=== PATIENT | male | born 1955 | race Caucasian/White ===

== ENCOUNTER 2016-10-19 19:25 | Inpatient (IN) | payer MEDICARE, OTHER ==
[~2016-10-19] VITALS: Ht 188 cm; Wt 106.6 kg
[2016-10-19 20:00] VITALS: BP 153/93
--- NOTE | 2016-10-19 20:30 | NUR ---
ADMITTED A 61 Y/O MALE FROM [facility], VOLUNTARY, PATIENT ADMITTED HAVING DEPRESSION AND SUICIDAL IDEATION THIS MORNING. PATIENT STATED " BEING HOMELESS FOR 5 YEARS, THAT'S DEPRESSING. SEEING PEOPLE IN THE STREET'S, THAT'S DEPRESSING. HAVING AN INTENSE PAIN, THAT'S DEPRESSING". PATIENT ADMITTING DX. DEPRESSION. PATIENT MEDICAL DX. HYPERTENSION, NEUROPATHY, CHRONIC LUMBAR STENOSIS, GERD, HEP C, ADHD, ALCOHOLIC. PATIENT ALERT AND ORIENTED X 3-4, CALM, ANXIOUS, COOPERATIVE, HYPERVERBAL, VERBALIZED DEPRESSION, NO SOB, NO ACUTE DISTRESS NOTED, BREATHING EVEN AND UNLABORED, DENIES PAIN AND DISCOMFORT AT THE MOMENT, DENIES SI/HI/AH/VH AT THIS TIME, FULL CODE, NKA, PICTURE DONE, BELONGINGS AND CONTRABAND INSPECTED AND PLACED TO SAFE. PATIENT SIGNED ALL PAPER WORKS, PATIENT REFUSED TO DISCLOSED INFORMATIONS, KEPT CLEAN, DRY AND COMFORTABLE, WILL CONTINUE TO MONITOR [id number] FOR SAFETY.
[2016-10-19] MEDS ORDERED: OMEP20CA10 PO (20:55)
[2016-10-19] MEDS ORDERED: ATEN50TA PO (20:55)
[2016-10-19] MEDS ORDERED: HYDR-3658 PO (20:55)
[2016-10-19] MEDS ORDERED: FOLI1TAB16 PO (20:55)
[2016-10-19] MEDS ORDERED: LORA1TAB82 PO (20:55)
[2016-10-19] MEDS ORDERED: THIA100T74 PO (20:55)
[2016-10-19] MEDS ORDERED: MULT-331 PO (20:55)
[2016-10-19] MEDS ORDERED: HYDROCODONE/APAP 10/325MG 1 EA TABLET ONE (21:34)
--- NOTE | 2016-10-19 22:00 | NUR ---
GPS RN NOTE: NOTIFIED DR. ORTIZ AND RECONCILED MEDICATION.
[2016-10-19] MEDS: HYDROCODONE/APAP 10/325MG 1 EA TABLET PO PRN (22:24)
[2016-10-19] MEDS ORDERED: ZOLPIDEM TARTRATE 5 MG TABLET PO PRN (23:30)
[2016-10-19] MEDS ORDERED: ACETAMINOPHEN 325 MG TABLET PO PRN (23:30)
[2016-10-19] MEDS ORDERED: MAG HYDROX/AL HYDROX/SIMETH 30 ML UDC PO PRN (23:30)
[2016-10-19] MEDS ORDERED: MAGNESIUM HYDROXIDE 30 ML UDC PO PRN (23:30)
[2016-10-19] MEDS ORDERED: LORAZEPAM 0.5 MG TABLET PO PRN (23:30)
[2016-10-20] MEDS ORDERED: MAG HYDROX/AL HYDROX/SIMETH 30 ML UDC ONE (01:07)
[2016-10-20 05:33] VITALS: BP 144/80
[2016-10-20] MEDS ORDERED: HYDROCODONE/APAP 10/325MG 1 EA TABLET ONE (05:54)
[2016-10-20 07:17] LABS: ALBUMIN 3.4 g/dL (3.4-5.0); BILIRUBIN,TOTAL 1.2 mg/dL (0.2-1.0); CALCIUM, SERUM 9.4 mg/dL (8.5-10.1); CREATININE 0.7 mg/dL (0.6-1.3); POTASSIUM 3.3 mmol/L (3.5-5.1); TOTAL PROTEIN, SERUM 7.7 g/dL (6.4-8.2)
[2016-10-20 08:00] VITALS: BP 156/97
--- NOTE | 2016-10-20 08:56 | NUR ---
Initial DC Plan: Patient is homeless and has been living [place] [address] (near [facility]) in [place], [place]. He does not want to go back to living on the street.He states that he would be interested in either a SNF or a sober living facility and reports that he has been on the waiting list for [facility] ([address] [place] [address] ) for about 5.5 years now. He would like placement in the meantime. Yung attempted to contact patient's sister (Bailey Carlson- [phone]) but her Lee answered and stated she was on the other line and will call the YUNG back. Patient will also be given resources for alcohol and tobacco cessation prior to discharge. Addendum: 10/20/16 at 0919 by TYRELL BARRAGAN Spoke to the patient's sister Bailey Carlson- [phone] who stated that she agrees to the discharge plan and that she would like to be notified of where the patient will be going.
[2016-10-20] MEDS ORDERED: Medication Not On Formulary EA (Omeprazole 1 CAP) PO SCH (09:00)
[2016-10-20] MEDS: THIAMINE HCL 100 MG TABLET PO SCH (09:25)
[2016-10-20] MEDS: MULTIVITAMINS,THERAPEUTIC 1 UDTAB TABLET PO SCH (09:25)
[2016-10-20] MEDS: ATENOLOL 50 MG TABLET PO SCH (09:25)
[2016-10-20] MEDS: FOLIC ACID 1 MG TABLET PO SCH (09:25)
[2016-10-20] MEDS: PANTOPRAZOLE 40 MG TABLET.DR PO SCH (10:11)
[2016-10-20] MEDS: HYDROCODONE/APAP 10/325MG 1 EA TABLET PO PRN ×3 (10:15→22:44)
--- NOTE | 2016-10-20 10:16 | NUR ---
GPS/RN PATIENT REPORTS LOWER BACK PAIN OF 8/10, ADMINISTERED NORCO PO ORDERED, WILL CONTINUE TO MONITOR.
[2016-10-20] MEDS ORDERED: POTASSIUM CHLORIDE 20 MEQ TAB.PRT.SR PO ONE (10:30)
--- NOTE | 2016-10-20 11:05 | NUR ---
Faxed facesheet to [address] [address] FAX: [phone]. Will follow up.
--- NOTE | 2016-10-20 12:28 | NUR ---
MARIELA from [address] [address] FAX: [phone] came to see the patient. SW will follow up with him to see if he will be accepted or not.
[2016-10-20] MEDS: BUPROPION XL 150 MG TAB.ER.24 PO SCH (13:27)
[2016-10-20] MEDS ORDERED: Z GUARD REMEDY 2 OZ OINT TP PRN (18:30)
[2016-10-20 20:52] VITALS: BP 149/88
[2016-10-20] MEDS ORDERED: QUETIAPINE FUMARATE 25 MG TABLET PO SCH (22:00)
--- NOTE | 2016-10-20 22:47 | NUR ---
GPS RN: PATIENT REFUSED HIS SEROQUEL MEDICATION, PER PATIENT HE DOESN'T LIKE THE SEDATIVE EFFECTS IT GIVES HIM. PATIENT EDUCATION REGARDING MEDICATION STARTED. PATIENT STILL OPTED TO REFUSED TAKING THE MEDICATION. WILL ENDORSE TO THE DAY SHIFT NURSE.
[2016-10-21] MEDS: HYDROCODONE/APAP 10/325MG 1 EA TABLET PO PRN ×3 (06:39→20:35)
[2016-10-21] MEDS: PANTOPRAZOLE 40 MG TABLET.DR PO SCH (08:12)
[2016-10-21] MEDS: BUPROPION XL 150 MG TAB.ER.24 PO SCH (08:12)
[2016-10-21] MEDS: ATENOLOL 50 MG TABLET PO SCH (08:12)
[2016-10-21] MEDS: MULTIVITAMINS,THERAPEUTIC 1 UDTAB TABLET PO SCH (08:12)
[2016-10-21] MEDS: THIAMINE HCL 100 MG TABLET PO SCH (08:12)
[2016-10-21] MEDS: FOLIC ACID 1 MG TABLET PO SCH (08:12)
[2016-10-21] MEDS: NICOTINE PATCH (21MG) 21 MG PATCH.TD24 TD SCH (08:13)
[2016-10-21 08:28] VITALS: BP 139/90
--- NOTE | 2016-10-21 09:18 | NUR ---
WOUND CARE CONSULT: PT PRESENTS CONTINENT AND ABLE TO REPOSITION IN BED. RESOLVING RASH NOTED TO GROIN AND BUTTOCKS. Z GUARD IN USE. DISCUSSED SKIN PROTECTION WITH NURSING STAFF. WILL SEE PRN. Addendum: 10/21/16 at 0919 by TAD JOYNER WNDNU Amended: Links added.
--- NOTE | 2016-10-21 12:25 | NUR ---
TAVERN OPERATOR-NOTES PATIENT C/O 7/10 LOWER BACK PAIN. NORCO 10MG/325MG P.O GIVEN PRN ORDER. WILL CONT. MONITORING FOR SAFETY.
--- NOTE | 2016-10-21 12:41 | NUR ---
Per Claire (admissions) from [facility], patient is accepted to their facility.
[2016-10-21] MEDS ORDERED: hydrOXYzine PAMOATE 50 MG CAPSULE PO PRN (15:00)
[2016-10-21 15:35] VITALS: BP 138/80
--- NOTE | 2016-10-21 15:35 | NUR ---
DYE OPERATOR-NOTES RECEIVED REPORT FROM [facility]. REGARDING PATIENT MRSA NARES POSITIVE. THREAD PULLER DELGADO MADE AWARE WITH THE ORDER OF BACTROBAN OINT. BID X 10 DAYS. NOTED AND CARRIED OUT.PATIENT WAS PUT ON CONTACT ISOLATION.
[2016-10-21] MEDS: MUPIROCIN OINT 2% 22 GM TUBE SCH (17:49)
--- NOTE | 2016-10-21 19:30 | NUR ---
GPS RN NOTE, RECEIVED PATIENT AWAKE AND IN BED, PATIENT HAS A COMPLAINT OF LOWER BACK AT 7 OUT 10 ON THE PAIN SCALE. PATIENT IS TAKING ORAL PAIN MEDICATION FOR THIS PAIN. PATIENT IS DISPLAYING NO S/S OF APPARENT DISTRESS AT THIS TIME. PATIENT BREATHING IS UNLABORED WITH EQUAL RISE AND FALL OF THE CHEST. PATIENT IS ALERT AND ORIENTED X 3 ON ROOM AIR WITH A SPO2 97%. PATIENT COMPLIANT WITH MEDICATION, CALM, COOPERATIVE, AND NEEDS REORIENTATION. PATIENT DENIES SUICIDE AND HOMICIDAL IDEATIONS AT THIS TIME. PATIENT ASSISTED WITH TURNING AND REPOSITIONING Q2HR AND PRN FOR COMFORT AND CIRCULATION. PATIENT HAS NO NEEDS AT THIS TIME. PATIENT EDUCATED ON THE USE OF THE CALL THOMPSON. PATIENT BED SIDE RAILS UP X2 FOR SAFETY, BED IS LOCKED AND LOW WILL CONTINUE TO MONITOR AND MAINTAIN SAFETY.
[2016-10-21 19:58] VITALS: BP 147/90
--- NOTE | 2016-10-21 20:35 | NUR ---
GPS RN NOTE, PATIENT HAS A COMPLAINT OF LOWER BACK PAIN AT 7 OUT 10 ON THE PAIN SCALE AND WOULD LIKE MEDICATION AT THIS TIME. PATIENT IS VITAL SIGNS ARE STABLE. GAVE NORCO 10-325 MG 1 TAB PO Q6HR PRN ORDERED. WILL REASSESS PAIN AND I WILL CONTINUE TO MONITOR THIS PATIENT.
[2016-10-22] MEDS: HYDROCODONE/APAP 10/325MG 1 EA TABLET PO PRN ×2 (05:35→13:53)
--- NOTE | 2016-10-22 05:35 | NUR ---
GPS RN NOTE, PATIENT HAS A COMPLAINT OF LOWER BACK PAIN AT 6 OUT 10 ON THE PAIN SCALE AND WOULD LIKE MEDICATION AT THIS TIME. PATIENT IS VITAL SIGNS ARE STABLE. GAVE NORCO 10-325 MG 1 TAB PO Q6HR PRN ORDERED. WILL REASSESS PAIN AND I WILL CONTINUE TO MONITOR THIS PATIENT.
[2016-10-22 08:00] VITALS: BP 133/88
[2016-10-22] MEDS: NICOTINE PATCH (21MG) 21 MG PATCH.TD24 TD SCH (08:37)
[2016-10-22] MEDS: MULTIVITAMINS,THERAPEUTIC 1 UDTAB TABLET PO SCH (08:37)
[2016-10-22] MEDS: ATENOLOL 50 MG TABLET PO SCH (08:37)
[2016-10-22] MEDS: FOLIC ACID 1 MG TABLET PO SCH (08:37)
[2016-10-22] MEDS: THIAMINE HCL 100 MG TABLET PO SCH (08:37)
[2016-10-22] MEDS: BUPROPION XL 150 MG TAB.ER.24 PO SCH (08:38)
[2016-10-22] MEDS: MUPIROCIN OINT 2% 22 GM TUBE SCH ×2 (08:38→16:57)
[2016-10-22] MEDS: PANTOPRAZOLE 40 MG TABLET.DR PO SCH (08:38)
[2016-10-22 16:00] VITALS: BP 121/82
[2016-10-22 20:00] VITALS: BP 134/87
[2016-10-23] MEDS: HYDROCODONE/APAP 10/325MG 1 EA TABLET PO PRN ×4 (00:36→22:08)
[2016-10-23 06:43] LABS: BASOPHILS % (AUTO) 0.4 % (0.0-2.0); EOSINOPHILS # (AUTO) 0.2 /CMM (0.0-0.7); EOSINOPHILS % (AUTO) 4.2 % (0.0-6.0); HEMATOCRIT 42 % (39-51); HEMOGLOBIN 14.4 g/dL (13.5-17.5); LYMPHOCYTES # (AUTO) 1.6 /CMM (0.8-4.8); LYMPHOCYTES % (AUTO) 30.8 % (20.0-44.0); MEAN CORPUSCULAR HEMOGLOBIN 34 PG (26.0-33.0); MEAN CORPUSCULAR HGB CONC 34 g/dl (31.0-36.0); MEAN CORPUSCULAR VOLUME 99 fL (80-96); MONOCYTES % (AUTO) 18.6 % (2.0-12.0); NEUTROPHILS # (AUTO) 2.4 /CMM (1.8-8.9); PLATELET COUNT (AUTO) 139 /CMM (150-450); RDW COEFFICIENT OF VARIATION 15.8 (11.5-15.0); RED BLOOD CELL COUNT(AUTO) 4.26 MIL/uL (4.5-6.0); WHITE BLOOD COUNT (AUTO) 5.2 K/uL (4.3-11.0)
[2016-10-23 06:51] LABS: CALCIUM, SERUM 9.1 mg/dL (8.5-10.1); CREATININE 0.9 mg/dL (0.6-1.3); POTASSIUM 4.2 mmol/L (3.5-5.1)
[2016-10-23] MEDS: PANTOPRAZOLE 40 MG TABLET.DR PO SCH ×2 (07:52→08:01)
[2016-10-23 08:00] VITALS: BP 148/90
[2016-10-23] MEDS: VENLAFAXINE XR 75 MG CAP.SR.24H PO SCH (08:00)
[2016-10-23] MEDS: MULTIVITAMINS,THERAPEUTIC 1 UDTAB TABLET PO SCH (08:00)
[2016-10-23] MEDS: THIAMINE HCL 100 MG TABLET PO SCH (08:00)
[2016-10-23] MEDS: FOLIC ACID 1 MG TABLET PO SCH (08:01)
[2016-10-23] MEDS: ATENOLOL 50 MG TABLET PO SCH (08:01)
[2016-10-23] MEDS: MUPIROCIN OINT 2% 22 GM TUBE SCH ×2 (08:04→16:24)
[2016-10-23] MEDS: NICOTINE PATCH (21MG) 21 MG PATCH.TD24 TD SCH (08:05)
[2016-10-23 08:30] LABS: BAND % (MANUAL) 1 % (0.0-5.0); EOSINOPHILS % (MANUAL) 2 % (0-4); LYMPHOCYTES % (MANUAL) 37 % (16-48); MONOCYTES % (MANUAL) 15 % (0-11.0); NEUTROPHILS % (MANUAL) 45 (42-76)
--- NOTE | 2016-10-23 13:22 | NUR ---
Informed Claire from [facility] ([address] [place] [address] FAX: [phone]) that patient has MRSA for the nares and Dr. Doshi wants to double check on Wednesday to see if treatment will be completed. He stated they are okay with receiving the patient and if isolation is needed, they will create an isolation bed for him. SW informed him that she will touch bases with Dr. Doshi on Wednesday to get an updated discharge date and will keep him posted.
--- NOTE | 2016-10-23 13:49 | NUR ---
GEOSPATIAL TECHNOLOGIST-NOTES PATIENT C/O 11/16 LOWER BACK PAIN REQUESTING FOR PAIN MEDICATION. NORCO 10MG/325MG 1 TAB. P.O GIVEN PRN ORDER. WILL CONT. MONITORING FOR SAFETY.
[2016-10-23 16:00] VITALS: BP 146/95
[2016-10-23 20:00] VITALS: BP 134/93
[2016-10-23 20:41] VITALS: BP 132/90
--- NOTE | 2016-10-23 22:08 | NUR ---
RN-NOTES PATIENT C/O 8/10 LOWER BACK PAIN REQUESTING FOR PAIN MEDICATION. NORCO 10MG/325MG 1 TAB. P.O GIVEN PRN ORDER. WILL CONT. MONITORING FOR SAFETY.
[2016-10-24] MEDS: HYDROCODONE/APAP 10/325MG 1 EA TABLET PO PRN ×2 (06:23→13:41)
[2016-10-24 08:00] VITALS: BP 143/90
[2016-10-24] MEDS: VENLAFAXINE XR 75 MG CAP.SR.24H PO SCH (08:56)
[2016-10-24] MEDS: NICOTINE PATCH (21MG) 21 MG PATCH.TD24 TD SCH (08:56)
[2016-10-24] MEDS: FOLIC ACID 1 MG TABLET PO SCH (08:57)
[2016-10-24] MEDS: MULTIVITAMINS,THERAPEUTIC 1 UDTAB TABLET PO SCH (08:57)
[2016-10-24] MEDS: PANTOPRAZOLE 40 MG TABLET.DR PO SCH ×2 (08:57→09:00)
[2016-10-24] MEDS: THIAMINE HCL 100 MG TABLET PO SCH (08:57)
[2016-10-24] MEDS: ATENOLOL 50 MG TABLET PO SCH (08:57)
[2016-10-24] MEDS: MUPIROCIN OINT 2% 22 GM TUBE SCH ×2 (08:58→17:53)
--- NOTE | 2016-10-24 13:41 | NUR ---
administered narco 10/325 mg po prn for lower back pain 02/16 per patient request, v/s taken bp-134/87, p-62, continued monitoring.
[2016-10-24 16:15] VITALS: BP 132/92
[2016-10-24 20:00] VITALS: BP 148/69
--- NOTE | 2016-10-24 20:30 | NUR ---
NORCO 10 GIVEN. DID NOT SAVE IN [employer] SYSTEM FOR SOME REASON ?? GIVEN FOR LOW BACK PAIN. WILL MONITOR FOR EFFECTIVENESS.
--- NOTE | 2016-10-25 06:05 | NUR ---
GIVING NORCO AGAIN. MED SCANNED AND SAVED IN SYSTEM.
[2016-10-25] MEDS: HYDROCODONE/APAP 10/325MG 1 EA TABLET PO PRN ×2 (06:07→14:43)
[2016-10-25 08:00] VITALS: BP 139/90
[2016-10-25] MEDS: PANTOPRAZOLE 40 MG TABLET.DR PO SCH (08:23)
[2016-10-25] MEDS: FOLIC ACID 1 MG TABLET PO SCH (08:28)
[2016-10-25] MEDS: NICOTINE PATCH (21MG) 21 MG PATCH.TD24 TD SCH (08:28)
[2016-10-25] MEDS: ATENOLOL 50 MG TABLET PO SCH (08:28)
[2016-10-25] MEDS: THIAMINE HCL 100 MG TABLET PO SCH (08:28)
[2016-10-25] MEDS: VENLAFAXINE XR 75 MG CAP.SR.24H PO SCH (08:28)
[2016-10-25] MEDS: MULTIVITAMINS,THERAPEUTIC 1 UDTAB TABLET PO SCH (08:28)
[2016-10-25] MEDS: MUPIROCIN OINT 2% 22 GM TUBE SCH ×2 (08:35→17:02)
--- NOTE | 2016-10-25 14:44 | NUR ---
BLADDER TRIMMER-NOTES PATIENT C/O 810 LOWER BACK PAIN REQUESTING FOR PAIN MEDICATION. NORCO 10MG/325MG 1 TAB. P.O GIVEN PRN ORDER. WILL CONT. MONITORING FOR SAFETY.
[2016-10-25 16:00] VITALS: BP 120/79
[2016-10-25 20:09] VITALS: BP 127/76
[2016-10-26] MEDS: HYDROCODONE/APAP 10/325MG 1 EA TABLET PO PRN ×3 (04:11→21:06)
--- NOTE | 2016-10-26 05:19 | NUR ---
PT C/O BACK PAIN 12/17 AT 0411 HRS. NORCO 10-325 MG/PO GIVEN. EFFECTIVE. POST 1 HOUR MT 05/19
[2016-10-26] MEDS: PANTOPRAZOLE 40 MG TABLET.DR PO SCH (07:33)
[2016-10-26 08:00] VITALS: BP 137/81
[2016-10-26] MEDS: NICOTINE PATCH (21MG) 21 MG PATCH.TD24 TD SCH (08:36)
[2016-10-26] MEDS: THIAMINE HCL 100 MG TABLET PO SCH (08:36)
[2016-10-26] MEDS: MULTIVITAMINS,THERAPEUTIC 1 UDTAB TABLET PO SCH (08:36)
[2016-10-26] MEDS: FOLIC ACID 1 MG TABLET PO SCH (08:36)
[2016-10-26] MEDS: ATENOLOL 50 MG TABLET PO SCH (08:36)
[2016-10-26] MEDS: MUPIROCIN OINT 2% 22 GM TUBE SCH ×2 (08:36→16:58)
--- NOTE | 2016-10-26 11:29 | NUR ---
Patient informed that he has been accepted to [facility] ([address] [place], [place], [address]) and will be discharged tomorrow. Facility informed that he has MRSA Nares and patient to finish treatment there. Patient agrees to be placed and sent to [facility].
[2016-10-26] MEDS: VENLAFAXINE XR 75 MG CAP.SR.24H PO SCH (12:16)
--- NOTE | 2016-10-26 12:29 | NUR ---
Ambulance Transportation scheduled ([facility]- with [facility]) for tomorrow October 27, 2016 at 1:30pm going to [facility] ([place], [place], [address]; [phone]). Claire from the facility is informed.
--- NOTE | 2016-10-26 12:36 | NUR ---
Called to inform the patient's sister Bailey Carlson- [phone]- that pt will discharge to [facility] ([place], [place], [address]; [phone]) tomorrow October 27, 2016 at 1:30pm. Her Lee answered, wrote down the information, and stated that he will pass along the message to her later.
--- NOTE | 2016-10-26 13:14 | NUR ---
STATION INSTALLATION SUPERVISOR-NOTES PATIENT C/O 810 LOWER BACK PAIN REQUESTING FOR PAIN MEDICATION. NORCO 10MG/325MG 1 TAB. P.O GIVEN PRN ORDER. WILL CONT. MONITORING FOR SAFETY.
[2016-10-26 16:00] VITALS: BP 132/72
--- NOTE | 2016-10-26 17:52 | NUR ---
DRUM STENCILER-NOTES PATIENT IN HIS ROOM EATING HIS DINNER ,NO ACUTE DISTRESS NOTED.ALL NEEDS ATTENDED AND ANTICIPATED. ENDORSED TO THE CHARGE NURSE FOR CONTINUITY OF CARE.
[2016-10-26 22:12] VITALS: BP_SYST 130; BP_SYST 142; BP_DIAS 65; BP_DIAS 79
[2016-10-27] MEDS: HYDROCODONE/APAP 10/325MG 1 EA TABLET PO PRN ×2 (04:51→13:01)
[2016-10-27 08:00] VITALS: BP 125/82
[2016-10-27] MEDS: THIAMINE HCL 100 MG TABLET PO SCH (08:14)
[2016-10-27] MEDS: FOLIC ACID 1 MG TABLET PO SCH (08:14)
[2016-10-27] MEDS: PANTOPRAZOLE 40 MG TABLET.DR PO SCH (08:14)
[2016-10-27 08:15] VITALS: BP 125/82
[2016-10-27] MEDS: MULTIVITAMINS,THERAPEUTIC 1 UDTAB TABLET PO SCH (08:15)
[2016-10-27] MEDS: ATENOLOL 50 MG TABLET PO SCH (08:15)
[2016-10-27] MEDS: NICOTINE PATCH (21MG) 21 MG PATCH.TD24 TD SCH (08:16)
--- NOTE | 2016-10-27 10:00 | NUR ---
AUD-OW-TDHJI: NOTIFIED DR. ORTIZ ABOUT LABS VALUES ON 10/23/16: RBC= 4.26, MCV= 99, MCH= 34, RDW COEFF OF MAN= 15.8, PLT COUNT= 139, MONO %= 18.6, MONOCYTES %= 15. NO NEW ORDERS GIVEN AT THIS TIME
[2016-10-27] MEDS: VENLAFAXINE XR 75 MG CAP.SR.24H PO SCH (12:25)
--- NOTE | 2016-10-27 13:02 | NUR ---
[id number]: GAVE NORCO 10/325 MG PO DUE TO GENERALIZED PAIN 12/17 UPON PT REQUEST AND WILL CONTINUE TO MONITOR FOR EFFECTIVENESS OF MEDICATION
--- NOTE | 2016-10-27 14:30 | NUR ---
KIC-LN-DIAMO: PT IS 61 YEARS OLD MALE DISCHARGE TO [facility] [place] [address]; [phone] IN STABLE CONDITION. COMPLAINT WITH MEDICATIONS, COOPERATIVE WITH TREATMENT PLANS. PT DENIES SI/HI AND INSTRUCTED TO GO TO THE CLOSEST ER IF DEVELOPING SI/HI. BEHAVIOR IMPROVED, PSYCHIATRIC TX PLANS MET, MEDICAL TX PLANS DEFERRED FOR CONTINUAL MONITORING. EDUCATED PT ABOUT AFTER CARE PLAN AND COPY PROVIDED. RETURN PERSONAL BELONGINGS TO PT. MEDICATIONS RECONCILED WITH DR. ORTIZ AND DR. MORENO. REPORT GIVEN TO JEFF AT [facility] FOR CONTINUITY OF CARE. PT SIGNED DISCHARGE PAPERWORK. SKIN ASSESSMENT DONE AND DOCUMENTED. PT LEFT THE UNIT ACCOMPANIED BY AMBULANCE AND STAFF.
--- NOTE | 2016-10-27 14:47 | NUR ---
Discharge Note: Patient was discharged to [facility] ([address], [place], [address]) via [facility] transportation. Patient denied suicidal/homicidal ideation at the time of discharge. Patient was given referral to [facility] for Wednesday November 02, 2016 6:15PM located at [address] [place] [address]. He is instructed to check in at the information desk and meeting is held in the Committee Room C opposite the cafeteria. He was also given a telephone meeting for Nicotine Anonymous group meeting held by Alexis for October at 10AM. Patient is to call [phone] and enter pin number of [phone] Patient will follow up with his psychiatrist Dr. Doshi at [facility] ([address] [place] [address], [address]) on Friday October 28, 2016 at 4pm to discuss his ETOH abuse. Furthermore, patient was referred to [facility], [address] [place] [address] for an intake appointment at 09:00AM Sunday October 30, 2016 at 9AM. Facilitated info to IDT team who are in agreement with DC arrangement. The multidisciplinary exitcare form was done, printed, signed, and given to the patient.
== END 2016-10-27 14:30 | DRG 885 ==
LOC: GPS 19:25
PROVIDERS: ADMIT Psychiatry & Neurology Psychiatry
DX: F33.3 Major depressive disorder, recurrent, severe with psychotic symptoms (principal); R45.851 Suicidal ideations; F41.9 Anxiety disorder, unspecified; I10 Essential (primary) hypertension; Z59.0 Homelessness; Z81.8 Family history of other mental and behavioral disorders; Z72.0 Tobacco use; D69.59 Other secondary thrombocytopenia; E87.6 Hypokalemia; F90.9 Attention-deficit hyperactivity disorder, unspecified type; M48.06 Spinal stenosis, lumbar region; K70.9 Alcoholic liver disease, unspecified; F10.20 Alcohol dependence, uncomplicated
CPT/HCPCS: 36415; 80048-TC; 80053-TC; 80061-TC; 85025-TC; 87081-TC; 97001-TC; 97110-TC; 97116-TC; 97530-TC

== ENCOUNTER 2017-01-18 16:17 | Emergency (ER) | payer MEDICARE, OTHER ==
[~2017-01-18] VITALS: Ht 188 cm; Wt 104.8 kg
[~2017-01-18 16:17] MED LIST: ATEN50TA PO; FOLI1TAB16 PO; HYDR-3658 PO; LORA1TAB82 PO; MULT-331 PO; OMEP20CA10 PO; THIA100T74 PO
--- NOTE | 2017-01-18 16:45 | NUR ---
[facility]IB [facility], SENT BY DR DELEON FOR PSYCH EVAL C/O AGGRESSIVE TOWARDS STAFF AND COMBATIVE TO OTHER PATIENTS, RESP EVEN AND UNLABORED NAD NOTED, VSS, WAITING FOR MD COOMBS
[2017-01-18 16:48] LABS: BASOPHILS % (AUTO) 0.3 % (0.0-2.0); EOSINOPHILS # (AUTO) 0.1 /CMM (0.0-0.7); EOSINOPHILS % (AUTO) 1.1 % (0.0-6.0); HEMATOCRIT 44 % (39-51); HEMOGLOBIN 14.9 g/dL (13.5-17.5); LYMPHOCYTES # (AUTO) 2.8 /CMM (0.8-4.8); LYMPHOCYTES % (AUTO) 31.5 % (20.0-44.0); MEAN CORPUSCULAR HEMOGLOBIN 32 PG (26.0-33.0); MEAN CORPUSCULAR HGB CONC 34 g/dl (31.0-36.0); MEAN CORPUSCULAR VOLUME 95 fL (80-96); MONOCYTES # (AUTO) 0.7 /CMM (0.1-1.30); MONOCYTES % (AUTO) 8.5 % (2.0-12.0); NEUTROPHILS # (AUTO) 5.2 /CMM (1.8-8.9); NEUTROPHILS % (AUTO) 58.6 % (43.0-81.0); PLATELET COUNT (AUTO) 186 /CMM (150-450); RDW COEFFICIENT OF VARIATION 12.7 (11.5-15.0); RED BLOOD CELL COUNT(AUTO) 4.64 MIL/uL (4.5-6.0); WHITE BLOOD COUNT (AUTO) 8.8 K/uL (4.3-11.0)
[2017-01-18 17:00] LABS: CALCIUM, SERUM 8.4 mg/dL (8.5-10.1); CREATININE 0.8 mg/dL (0.6-1.3); POTASSIUM 3.8 mmol/L (3.5-5.1)
[2017-01-18] MEDS ORDERED: IV NS 0.9% 500 ML BAG IV ONE (17:00)
[2017-01-18] MEDS ORDERED: IV NS 0.9% 1,000 ML IV PRN (17:02)
--- NOTE | 2017-01-18 17:10 | NUR ---
Patient is resting comfortably in bed with eyes closed. Easily aroused. VSS. Patient was very cooperative with his care. AAOx3.
[2017-01-18] MEDS ORDERED: ONDANSETRON HCL/PF 4 MG/2 ML VIAL IVP PRN (17:30)
[2017-01-18] MEDS ORDERED: MAG HYDROX/AL HYDROX/SIMETH 30 ML UDC PO PRN (17:30)
[2017-01-18] MEDS ORDERED: ZOLPIDEM TARTRATE 5 MG TABLET PO PRN (17:30)
[2017-01-18] MEDS ORDERED: Z GUARD REMEDY 2 OZ OINT TP PRN (17:30)
[2017-01-18] MEDS ORDERED: LORAZEPAM 1 MG TABLET PO PRN (17:30)
[2017-01-18] MEDS ORDERED: ACETAMINOPHEN 325 MG TABLET PO PRN (17:30)
[2017-01-18] MEDS ORDERED: MAGNESIUM HYDROXIDE 30 ML UDC PO PRN (17:30)
[2017-01-18] MEDS ORDERED: HYDROCODONE/APAP 5/325MG 1 EACH TABLET PO PRN (17:30)
[2017-01-18] MEDS ORDERED: ENOXAPARIN SODIUM 40 MG/0.4 ML DISP.SYRIN SQ SCH (17:30)
--- NOTE | 2017-01-18 17:55 | NUR ---
Patient is resting comfortably in bed with eyes closed. Easily aroused. VSS
[2017-01-18 18:15] VITALS: BP 137/82
--- NOTE | 2017-01-18 18:25 | NUR ---
PATIENT PULLED OUT HIS IV WITNESSED BY JASWANT, EMT, PRESSURE AND 4X4 APPLIED TO SITE. NO BLEEDING NOTED.
--- NOTE | 2017-01-18 18:40 | NUR ---
Patient eloped from facility. ER MD notified.
--- NOTE | 2017-01-18 19:00 | NUR ---
Paged Dr Pedraza. Awaiting for return call.
--- NOTE | 2017-01-18 19:16 | NUR ---
DR DELEON NOTIFIED REGARDING PATIENT WHO LEFT THE ER UNNOTICED.
--- NOTE | 2017-01-18 19:24 | NUR ---
[facility] NON EMERGENCY DISPATCH, CLINICAL DERMATOLOGIST NUMBER [id number] INCIDENT #[id number] I NOTIFIED THEM THAT THE PATIENT ELOPED. THEY WILL BE SENDING A UNIT TO THE DEPARTMENT TO MAKE A REPORT.
[2017-01-19] MEDS ORDERED: PANTOPRAZOLE 40 MG TABLET.DR PO SCH (07:30)
[2017-01-19] MEDS ORDERED: THIAMINE HCL 100 MG TABLET PO SCH (09:00)
[2017-01-19] MEDS ORDERED: FOLIC ACID 1 MG TABLET PO SCH (09:00)
[2017-01-19] MEDS ORDERED: MULTIVITAMINS,THERAGRAN 1 UDTAB TABLET PO SCH ×2 (09:00)
[2017-01-19] MEDS ORDERED: Medication Not On Formulary EA (Omeprazole 1 CAP) PO SCH (09:00)
[2017-01-19] MEDS ORDERED: ATENOLOL 50 MG TABLET PO SCH (09:00)
== END 2017-01-18 19:21 | disposition left against medical advice (07) ==
LOC: ER 16:19
DX: F10.129 Alcohol abuse with intoxication, unspecified (principal); D69.59 Other secondary thrombocytopenia; F32.9 Major depressive disorder, single episode, unspecified; F41.9 Anxiety disorder, unspecified; G89.29 Other chronic pain; G93.40 Encephalopathy, unspecified; I10 Essential (primary) hypertension; K21.9 Gastro-esophageal reflux disease without esophagitis; K70.9 Alcoholic liver disease, unspecified; M48.06 Spinal stenosis, lumbar region; Z59.0 Homelessness
CPT/HCPCS: 36415; 80048; 80305; 85025; 87081; 99285; A4606; G0480; Z7610